=== PATIENT | male | born 1960 | race Caucasian/White ===

== ENCOUNTER 2020-09-28 06:45 | Day surgery (SDC) | payer OTHER ==
[~2020-09-28] VITALS: Ht 157.5 cm; Wt 77.3 kg
[~2020-09-28 06:45] MED LIST: ASPIRIN 325 MG TABLET PO ONE; SODIUM CHLORIDE 0.9% 1,000 ML IV SCH
[2020-09-28] MEDS ORDERED: SODIUM CHLORIDE 0.9% 1,000 ML ONE (07:27)
[2020-09-28 07:34] LABS: COVID AG,FIA SOURCE NASOPHARYNGEAL
[2020-09-28 07:43] LABS: BASOPHILS % (AUTO) 0.8 % (0.0-2.0); HEMATOCRIT 43.7 % (41-53); HEMOGLOBIN 14.6 g/dL (13.5-17.5); LYMPHOCYTES % (AUTO) 24.3 % (22.0-44.0); MEAN CORPUSCULAR HEMOGLOBIN 31.5 pg (26.0-34.0); MEAN CORPUSCULAR HGB CONC 33.4 G/dL (31.0-37.0); MEAN CORPUSCULAR VOLUME 94 fL (80-100); MONOCYTES # (AUTO) 1.2 K/uL (0.1-1.0); MONOCYTES % (AUTO) 14.6 % (2.0-9.0); NEUTROPHILS # (AUTO) 4.8 K/uL (1.8-7.7); NEUTROPHILS % (AUTO) 57.3 % (40.0-70.0); PLATELET COUNT (AUTO) 138 K/uL (150-450); RED BLOOD CELL COUNT(AUTO) 4.64 MIL/uL (4.50-5.90); RED CELL DISTRIBUTION WIDTH 13.6 % (11.5-14.5)
[2020-09-28 07:44] LABS: ANION GAP 12 mmol/L (8-16); CALCIUM, TOTAL 9.2 mg/dL (8.8-10.5); CARBON DIOXIDE 24 mmol/L (22-29); CHLORIDE 105 mmol/L (98-107); GLOMERULAR FILTR. RATE CALC > 60 mL/min (>60); GLUCOSE,RANDOM 92 mg/dL (70-110); POTASSIUM 4.3 mmol/L (3.5-5.1); SODIUM SERUM 141 mmol/L (136-145); UREA NITROGEN, BLOOD 11 mg/dL (7-18)
[2020-09-28 07:50] LABS: ALANINE AMINOTRANSFERASE 35 U/L (12-78); ALBUMIN 3.7 g/dL (3.4-5.0); ALKALINE PHOSPHATASE 103 U/L (46-116); ASPARTATE AMINOTRANSFERASE 33 U/L (15-37); BILIRUBIN,TOTAL 0.7 mg/dL (0.1-1.0); TOTAL PROTEIN, SERUM 8.2 g/dL (6.4-8.2)
[2020-09-28 07:51] LABS: PROTHROMBIN TIME 10.5 SEC (9.4-11.6)
[2020-09-28] MEDS ORDERED: SODIUM BICARBONATE 50 MEQ/50 ML VIAL ONE (08:13)
[2020-09-28] MEDS ORDERED: HEPARIN SODIUM 1000 UNITS/NS 1,000 ML ONE (08:13)
[2020-09-28] MEDS ORDERED: IOHEXOL 300 MG/ML 50 ML VIAL ONE (08:13)
[2020-09-28] MEDS ORDERED: IOHEXOL 300 MG/ML 100 ML VIAL ONE (08:13)
[2020-09-28] MEDS ORDERED: LIDOCAINE/PF 1% 30 ML VIAL ONE ×2 (08:13→09:15)
[2020-09-28] MEDS ORDERED: METO25 PO (08:18)
[2020-09-28] MEDS ORDERED: NIAC500C13 PO (08:18)
[2020-09-28] MEDS ORDERED: CLOP75TA60 PO (08:18)
[2020-09-28] MEDS ORDERED: AMLO-258 PO (08:18)
[2020-09-28] MEDS ORDERED: OMEG-102 PO (08:18)
[2020-09-28] MEDS ORDERED: ATOR20TA86 PO (08:18)
[2020-09-28] MEDS ORDERED: ASPI-1450 PO (08:18)
[2020-09-28] MEDS ORDERED: PANT-31 PO (08:18)
[2020-09-28] MEDS ORDERED: CHOL-35 PO (08:18)
[2020-09-28] MEDS ORDERED: ASPIRIN 325 MG TABLET ONE (08:35)
[2020-09-28 08:49] VITALS: BP 125/69
[2020-09-28] MEDS ORDERED: IOHEXOL 300 MG/ML 150 ML VIAL ONE (08:55)
[2020-09-28] MEDS ORDERED: FentaNYL CITRATE PF 100 MCG/2 ML VIAL ONE ×2 (09:03→09:24)
[2020-09-28] MEDS ORDERED: MIDAZOLAM HCL 2 MG/2 ML VIAL ONE ×2 (09:03→09:24)
[2020-09-28] MEDS ORDERED: MIDAZOLAM HCL 2 MG/2 ML VIAL IVP ONE ×3 (09:15→09:45)
[2020-09-28] MEDS ORDERED: HEPARIN SODIUM 1000 UNITS/NS 1,000 ML IARTER ONE (09:15)
[2020-09-28] MEDS ORDERED: FentaNYL CITRATE PF 100 MCG/2 ML VIAL IVP ONE ×3 (09:15→09:45)
[2020-09-28] MEDS ORDERED: IOHEXOL 300 MG/ML 150 ML VIAL IARTER ONE (09:15)
[2020-09-28] MEDS ORDERED: LIDOCAINE 1% 30 ML/SOD BICARB 8.4% 4 ML SQ ONE (09:15)
[2020-09-28 09:49] VITALS: BP 143/87
== END 2020-09-28 13:00 | disposition home or self-care (01) ==
LOC: CATHLAB 06:45
PROVIDERS: ATTEND Specialist
DX: I25.10 Atherosclerotic heart disease of native coronary artery without angina pectoris (principal); R07.9 Chest pain, unspecified; Z95.5 Presence of coronary angioplasty implant and graft; Z72.89 Other problems related to lifestyle; T82.855A Stenosis of coronary artery stent, initial encounter; Y83.8 Other surgical procedures as the cause of abnormal reaction of the patient, or of later complication, without mention of misadventure at the time of the procedure; Z79.899 Other long term (current) drug therapy; Z98.890 Other specified postprocedural states
CPT/HCPCS: 36415; 80053; 85025; 85610; 85730; 87426; 93005; 93459; 99152; 99153; C1760; C9803; J1644; J2250; J3010; J3490 ×2; J7030; Q9967